=== PATIENT | female | born 1935 | race Caucasian/White ===

== ENCOUNTER → 2017-03-21 | Outpatient (CLI) | payer MEDICARE, BC ==
[~2017-03-21] MED LIST: LANS30CA PO; LEVO50TA5 PO; METO25TA35 PO; SUCR1TAB PO
== END | disposition home or self-care (01) ==
LOC: STAR 14:33
DX: Z02.9 Encounter for administrative examinations, unspecified (principal)

== ENCOUNTER 2017-03-30 10:24 | Day surgery (SDC) | payer MEDICARE, BC ==
[~2017-03-30] VITALS: Ht 157.5 cm; Wt 61.0 kg
[2017-03-30 10:52] VITALS: BP 148/83
[2017-03-30] MEDS ORDERED: LACTATED RINGERS 1,000 ML IV SCH (10:59)
[2017-03-30] MEDS ORDERED: FENTANYL PF 250 MCG/5ML ONE (12:07)
[2017-03-30] MEDS ORDERED: ROCURONIUM 10 MG/ML ONE (12:29)
[2017-03-30] MEDS ORDERED: ONDANSETRON 2MG/ML, 2ML ONE ×2 (12:29→13:57)
[2017-03-30] MEDS ORDERED: ESMOLOL 100 MG/10 ML ONE (12:29)
[2017-03-30] MEDS ORDERED: NEOSTIGMINE 1 MG/ML, 10ML ONE (12:29)
[2017-03-30] MEDS ORDERED: LABETALOL 5MG/ML, 20ML ONE (12:29)
[2017-03-30] MEDS ORDERED: PROPOFOL 10 MG/ML, 20ML ONE (12:29)
[2017-03-30] MEDS ORDERED: GLYCOPYRROLATE 0.2MG/1ML ONE (12:29)
[2017-03-30] MEDS ORDERED: EPHEDRINE 50 MG/ML, 1ML IVPush PRN (12:30)
[2017-03-30] MEDS ORDERED: LABETALOL 5MG/ML, 20ML IV PRN (12:30)
[2017-03-30] MEDS ORDERED: METOPROLOL 1 MG/ML, 5ML IV PRN (12:30)
[2017-03-30] MEDS ORDERED: ONDANSETRON 2MG/ML, 2ML IVPush PRN (12:30)
[2017-03-30] MEDS ORDERED: HYDROmorphone 1 MG/ML, 1ML IV PRN (12:30)
[2017-03-30] MEDS ORDERED: hydrALAzine 20 MG/ML, 1ML IV PRN (12:30)
[2017-03-30] MEDS ORDERED: OMNIPAQUE 350 MG/ML, 50 ML BOTTLE ONE (13:07)
[2017-03-30] MEDS ORDERED: FENTANYL PF 100 MCG/2ML ONE (13:16)
[2017-03-30] MEDS ORDERED: OXYcodone 5 MG/5 ML ORAL.SOL UDC ONE ×2 (13:17→13:39)
[2017-03-30] MEDS: OXYcodone 5 MG/5 ML ORAL.SOL UDC PO PRN ×2 (13:19→13:40)
[2017-03-30] MEDS: FENTANYL PF 100 MCG/2ML IV PRN ×3 (13:20→13:40)
[2017-03-30] MEDS ORDERED: hydrALAzine 20 MG/ML, 1ML ONE (13:39)
== END 2017-03-30 15:05 | disposition home or self-care (01) ==
LOC: OUT 10:24
PROVIDERS: ATTEND Internal Medicine Gastroenterology
DX: K80.50 Calculus of bile duct without cholangitis or cholecystitis without obstruction (principal); Z90.49 Acquired absence of other specified parts of digestive tract; I10 Essential (primary) hypertension; K21.9 Gastro-esophageal reflux disease without esophagitis; M19.90 Unspecified osteoarthritis, unspecified site; E03.9 Hypothyroidism, unspecified; Z86.010 Personal history of colon polyps; Z90.710 Acquired absence of both cervix and uterus; Z82.49 Family history of ischemic heart disease and other diseases of the circulatory system; Z82.5 Family history of asthma and other chronic lower respiratory diseases
CPT/HCPCS: 43264; 74328; C1769; J0360; J2405; J2704; J2710; J3010; J7120; Q9967; J3490